=== PATIENT | female | born 1980 | race Caucasian/White ===

== ENCOUNTER 2016-05-11 18:21 | Emergency (ER) | payer OTHER ==
[~2016-05-11] VITALS: Ht 165.1 cm; Wt 111.2 kg
[~2016-05-11 18:21] MED LIST: ACET-1256 PO; ASPI-232 PO; BUME1TAB PO; CARV25TA2 PO; DIGO0.1267 PO; MAGN400T6 PO; MULT-513 PO; POTA10CA28 PO; SPR25 PO; TRAM-10 PO
[2016-05-11 18:28] VITALS: Ht 165.1 cm; Wt 111.2 kg
[2016-05-11] MEDS ORDERED: OMEP20CA9 PO (18:32)
[2016-05-11] MEDS ORDERED: BUPR-79 PO (18:50)
[2016-05-11] MEDS ORDERED: CZR25 PO (18:53)
--- NOTE | 2016-05-11 19:19 | DIAGNOSTIC IMAGING REPORT ---
HEAD CT NONCONTRAST CT DOSE: 795.47 mGy.cm HISTORY: Struck left parietal region, vomiting, dizziness TECHNIQUE: Multiaxial CT images of the head were performed without the use of intravenous contrast. Automated exposure control was utilized for this study. Comparison: Head CT 07/30/2011. Findings: The paranasal sinuses and mastoid air cells are clear. The calvarium and skull base are intact. The ventricles and sulci are within normal limits. There is no mass, hematoma, midline shift, or acute infarct. Impression: No acute intracranial abnormality. Electronically signed by: Scott Caicedo M.D. 05/11/2016 7:17 PM Dictated Date/Time: 05/11/2016 7:13 PM
[2016-05-11] MEDS ORDERED: OPTIRAY 320 IV PRN (19:30)
[2016-05-11 19:54] LABS: BASO % 0.5 %; BASO ABS # 0.05 K/uL (0-0.2); COMPLETE YES; EOS % 1.7 %; HEMATOCRIT 38.3 % (37-47); IG% 0.1 %; LYMPH % 39.1 %; LYMPH ABS # 4.28 K/uL (1.2-3.4); MEAN CELL VOLUME 90.8 fL (80-100); MEAN CORPUSCULAR HEMOGLOBIN 29.6 pg (25-34); MEAN CORPUSCULAR HGB CONC 32.6 g/dl (32-36); MEAN PLATELET VOLUME 10.5 fL (7.4-10.4); MONO % 8.1 %; NEUT % 50.5 %; PLATELET COUNT 328 K/uL (130-400); RED BLOOD COUNT 4.22 M/uL (4.2-5.4); WHITE BLOOD COUNT 10.94 K/uL (4.8-10.8)
--- NOTE | 2016-05-11 20:05 | EMERGENCY ROOM VISIT NOTE ---
ED Visit Note First contact with patient: 18:31 This Patient was discussed with the physician social research assistant, David Rodriguez PA-C. The pertinent historical and physical exam findings were confirmed. I agree with the studies ordered and with the interpretations of these studies. I agree with the disposition and care plan.
[2016-05-11 20:11] LABS: CALCIUM 8.2 mg/dl (8.5-10.1); CREATININE 0.9 mg/dl (0.60-1.20); POTASSIUM 3.6 mmol/L (3.5-5.1)
[2016-05-11 20:16] LABS: ALB/GLOB RATIO 0.9 (0.9-2)
--- NOTE | 2016-05-11 20:21 | DIAGNOSTIC IMAGING REPORT ---
CHEST 2 VIEWS ROUTINE HISTORY: dyspnea COMPARISON: Chest 10/04/2015. FINDINGS: Left-sided single lead pacemaker/defibrillator. The heart remains mildly enlarged. The lungs are clear. No pleural effusions. No pneumothorax. IMPRESSION: No significant change compared to the prior study. No acute process. Stable cardiomegaly. Electronically signed by: Scott Caicedo M.D. 05/11/2016 8:19 PM Dictated Date/Time: 05/11/2016 8:18 PM
--- NOTE | 2016-05-11 20:52 | EMERGENCY ROOM VISIT NOTE ---
History First contact with patient: 18:31 Chief Complaint: HEAD INJURY (MINOR) Stated Complaint: HEAD INJURY,VOMITING,DIZZY,VISION PROBLEMS History of Present Illness The patient is a 35 year old female who presents to the Emergency Room via private vehicle with complaints of "head injury, vomiting, dizzy, vision problems". The patient states that earlier today around 4:14 AM she was at home lying on the couch and she leaned her head backwards and struck it off of the coffee table. She states that since then she has vomited 3 times, has developed a worsening pain on the top of her head and is unable to keep food down secondary to vomiting. She states that she feels very lethargic and has blurred vision in her right eye. She notes that there was no pain initially however the headache has been increasing and is now a 7 or 8/10. She is tried Tylenol without relief. She has tried Maxalt without relief. She states this is close to the worst headache of her life. She does have associated shortness of breath but notes that this has been ongoing for the past few weeks and does have a history of pulmonary embolism as well as cardiomyopathy with an ejection fraction of 20 or 22 as verified by echo. She denies any history of heart attacks. There is associated neck pain on the right but not over the spinous processes. She does take aspirin 3 times a week but no anticoagulants. Review of Systems A complete 10-point Review of Systems was discussed with the patient, with pertinent positives and negatives listed in the History of Present Illness. All remaining Review of Systems questions can be considered negative unless otherwise specified. Past Medical/Surgical History Medical Problems: (1) ADD (attention deficit disorder) (2) Bipolar 1 disorder (3) Cardiac defibrillator in place (4) Chronic back pain (5) Depression (6) History of CVA (cerebrovascular accident) (7) History of DVT (deep vein thrombosis) (8) HTN (hypertension) (9) Migraine (10) Ovarian cyst (11) Sciatic leg pain (12) Severe mitral regurgitation (13) Systolic heart failure (14) Uterine fibroid Surgical Problems: (1) History of cholecystectomy Family History Hypertension Diabetes Social History Smoking Status: Never Smoker Alcohol Use: occasionally Drug Use: none Marital Status: Housing Status: lives with family Occupation Status: disabled Social History: Patient lives at home with family, she is currently unemployed. Current/Historical Medications Scheduled Acetaminophen (Tylenol), 1,000 MG PO PRN UD Aspirin (Aspir-81), 81 MG PO 3XWK Bumetanide (Bumex), 1 MG PO QAM Bupropion (Wellbutrin Sr), 300 MG PO HS Carvedilol (Coreg), 25 MG PO BID Digoxin (Lanoxin), 0.125 MG PO QAM Losartan Potassium (Losartan Potassium), 25 MG PO DAILY Magnesium Oxide (Mag-Ox), 400 MG PO TID Multivitamins/Minerals (Mvi With Minerals), 1 TAB PO DAILY Omeprazole (Prilosec), 20 MG PO QAM Potassium Chloride (Micro-K Ext Rel), 10 MEQ PO DAILY Spironolactone (Spironolactone), 25 MG PO DAILY Scheduled PRN Tramadol (Ultram), 50 MG PO Q6 PRN for Pain Allergies Coded Allergies: Gabapentin (Verified Adverse Reaction, Intermediate, LOOSE STOOL, 05/11/16) Lidocaine (Verified Adverse Reaction, Intermediate, DIZZY, 05/11/16) Physical Exam Vital Signs Date Time Temp Pulse Resp B/P Pulse Ox O2 Delivery O2 Flow Rate FiO2 05/11/16 21:05 36.8 85 20 116/78 98 05/11/16 18:30 20 98 05/11/16 18:28 36.8 85 20 116/78 97 Room Air Physical Exam VITAL SIGNS - Vital signs and nursing notes were reviewed. Patient is afebrile , normotensive, not tachycardic, and is saturating well on room air 97%. GENERAL -35-year-old female appearing her stated age who is in no acute distress. Communicates well with provider and answers questions appropriately. SKIN - Without rashes. HEAD - NC/AT. No palpable skull fractures. No cherry signs or raccoons eyes. EYES - PERRL with EOMI bilaterally. Sclera anicteric. Palpebral conjunctiva pink and moist with no injection noted. EARS - No deformities of external structures noted on gross examination bilaterally. No hemotympanum. External auditory canals without discharge or otorrhea. Tympanic membranes pearly pappas without retraction or bulging. No fluid or purulent material visualized behind the TM. Handle of malleus, umbo, cone of light, pars tensa/flaccid all easily visualized. There was a slight amount of dried blood mixed with wax in the left ear canal. Upon insertion of the speculum in the left ear canal there was referred pain to her headache. NOSE - Midline and without cyanosis. No epistaxis or purulent drainage noted. Septum midline without deviation or septal hematoma noted. MOUTH/OROPHARYNX - Without perioral cyanosis. Buccal mucosa pink and moist and without leukoplakia. Tongue midline with equal elevation of palate bilaterally. No tonsillar hypertrophy, erythema, or exudates noted. Good dentition noted. NECK - Neck with FROM. Supple to palpation. No lymphadenopathy noted. No nuchal rigidity. There was tenderness to the right paraspinous musculature at the superior portion of the trapezius. No C-spine tenderness. LUNGS - Chest wall symmetric without accessory muscle use, intercostals retractions, or central cyanosis. Normal vesicular breath sounds CTA B/L. No wheezes, rales, or rhonchi appreciated. CARDIAC - RRR with S1/S2. No murmur, rubs, or gallops appreciated. EXTREMITIES - No clubbing or peripheral cyanosis. No pretibial edema present. + 5/5 strength noted in UE/LE bilaterally. NEUROLOGIC - Cranial nerves II through XII grossly intact. Sensory intact to light touch throughout. Patellar reflexes +2/4. PSYCH - A&Ox3 and cooperates fully with examiner. Pt is very pleasant and interacts well with examiner. Medical Decision & Procedures ER Provider Diagnostic Interpretation: CHEST 2 VIEWS ROUTINE HISTORY: dyspnea COMPARISON: Chest 10/04/2015. FINDINGS: Left-sided single lead pacemaker/defibrillator. The heart remains mildly enlarged. The lungs are clear. No pleural effusions. No pneumothorax. IMPRESSION: No significant change compared to the prior study. No acute process. Stable cardiomegaly. Electronically signed by: Scott Caicedo M.D. 05/11/2016 8:19 PM Dictated Date/Time: 05/11/2016 8:[address]AST CT DOSE: 795.47 mGy.cm HISTORY: Struck left parietal region, vomiting, dizziness TECHNIQUE: Multiaxial CT images of the head were performed without the use of intravenous contrast. Automated exposure control was utilized for this study. Comparison: Head CT 07/30/2011. Findings: The paranasal sinuses and mastoid air cells are clear. The calvarium and skull base are intact. The ventricles and sulci are within normal limits. There is no mass, hematoma, midline shift, or acute infarct. Impression: No acute intracranial abnormality. Electronically signed by: Scott Caicedo M.D. 05/11/2016 7:17 PM Dictated Date/Time: 05/11/2016 7:13 PM Laboratory Results 05/11/16 19:40 Red Blood Count 4.22, Mean Corpuscular Volume 90.8, Mean Corpuscular Hemoglobin 29.6, Mean Corpuscular Hemoglobin Concent 32.6, Mean Platelet Volume 10.5, Neutrophils (%) (Auto) 50.5, Lymphocytes (%) (Auto) 39.1, Monocytes (%) (Auto) 8.1, Eosinophils (%) (Auto) 1.7, Basophils (%) (Auto) 0.5, Neutrophils # (Auto) 5.52, Lymphocytes # (Auto) 4.28, Monocytes # (Auto) 0.89, Eosinophils # (Auto) 0.19, Basophils # (Auto) 0.05 05/11/16 19:40 Test 05/11/16 19:40 White Blood Count 10.94 K/uL (4.8-10.8) Red Blood Count 4.22 M/uL (4.2-5.4) Hemoglobin 12.5 g/dL (12.0-16.0) Hematocrit 38.3 % (37-47) Mean Corpuscular Volume 90.8 fL (80-100) Mean Corpuscular Hemoglobin 29.6 pg (25-34) Mean Corpuscular Hemoglobin Concent 32.6 g/dl (32-36) Platelet Count 328 K/uL (130-400) Mean Platelet Volume 10.5 fL (7.4-10.4) Neutrophils (%) (Auto) 50.5 % Lymphocytes (%) (Auto) 39.1 % Monocytes (%) (Auto) 8.1 % Eosinophils (%) (Auto) 1.7 % Basophils (%) (Auto) 0.5 % Neutrophils # (Auto) 5.52 K/uL (1.4-6.5) Lymphocytes # (Auto) 4.28 K/uL (1.2-3.4) Monocytes # (Auto) 0.89 K/uL (0.11-0.59) Eosinophils # (Auto) 0.19 K/uL (0-0.5) Basophils # (Auto) 0.05 K/uL (0-0.2) RDW Standard Deviation 45.6 fL (36.4-46.3) RDW Coefficient of Variation 13.7 % (11.5-14.5) Immature Granulocyte % (Auto) 0.1 % Immature Granulocyte # (Auto) 0.01 K/uL (0.00-0.02) D-Dimer 230 ug/L FEU (0-500) Anion Gap 10.0 mmol/L (3-11) Est Creatinine Clear Calc Drug Dose 108.4 ml/min Estimated GFR () 96.0 Estimated GFR (Non- 82.8 BUN/Creatinine Ratio 20.0 (10-20) Calcium Level 8.2 mg/dl (8.5-10.1) Total Bilirubin 0.1 mg/dl (0.2-1) Aspartate Amino Transf (AST/SGOT) 19 U/L (15-37) Alanine Aminotransferase (ALT/SGPT) 24 U/L (12-78) Alkaline Phosphatase 87 U/L (45-117) Troponin I 0.031 ng/ml (0-0.045) Pro-B-Type Natriuretic Peptide 64 pg/ml (0-450) Total Protein 7.0 gm/dl (6.4-8.2) Albumin 3.3 gm/dl (3.4-5.0) Globulin 3.7 gm/dl (2.5-4.0) Albumin/Globulin Ratio 0.9 (0.9-2) Medical Decision Patient was seen and evaluated as above. After obtaining a thorough history and physical examination proper CT of the head was ordered secondary to subjective and objective examination findings. The CT the head did not reveal any acute abnormalities. The patient noted there was slight increase of shortness of breath over the past few weeks and given her past medical history to include pulmonary embolism and cardiomyopathy I did feel that emergent heart and lung workup was warranted. Chest x-ray was negative. I initially ordered a CT scan of the patient's chest but decided against this noting that she had many in the past and she is not present today like pulmonary embolism. Vital signs were within normal limits. D-dimer was then ordered instead. Thorough discussion was had with this with the patient. The above workup was ordered to include CBC, CMP, proBNP, stat EKG, troponin. CBC revealed a slight leukocytosis at 10.94, with elevation of lymphocytes. I do not suspect any systemic or meningitic cause of this. Patient's d-dimer was negative at 230. CMP did not reveal any acute abnormality, calcium was slightly low at 8.2 and this was discussed with the patient. Slight abnormalities were noted in the total bilirubin and the albumin. I do not think that these are significant values at this time. The patient given her symptoms and lack of findings on today's workup is likely experiencing a concussion. She was educated upon management of this. She was instructed to follow-up with the [facility] concussion clinic and provided the number. She was instructed to follow-up with her family doctor. She was educated on worrisome symptoms in which to return. She had questions answered prior to discharge and was discharged home in good condition. The patient's EKG revealed a normal sinus rhythm, rate of 62 bpm with moderate voltage criteria for LVH but she has had a history of cardiomyopathy and this EKG when compared to previous showed improvement. There was no ectopy or acute ischemic changes noted. With the negative troponin, negative BNP and within normal limits EKG I do not suspect any emergent cardiac or primary cause of this today. In the evaluation and treatment of this patient, the following differential diagnoses were considered: Concussion, Contrecoup Injury, Brain Tumor, Depression, Encephalitis, Hypothyroidism, Meningitis, CVA, TIA, Migraine, Cluster Headache, Intracranial Abnormality, myocardial infarction, pulmonary embolism, heart failure, Intracranial Hemorrhage, Subdural Hematoma, Subarachnoid Hemorrhage, Hydrocephalus. Impression Primary Impression: Closed head injury Additional Impressions: Concussion, Hypocalcemia, Leukocytosis Departure Information Dispostion Home / Self-Care Condition GOOD Referrals Michelle Good ARajan P.Layton (PCP) Patient Instructions A Signature Page, My [facility] Additional Instructions You have been treated in the Emergency Department for a Closed Head Injury. CT Scan of your head/brain demonstrated no acute bleeding or other abnormalities. This does not completely rule out the risk for future damage to the brain. Workup has improved a heart attack and pulmonary embolism as being less likely today is cause of your shortness of breath. Please follow-up with the family doctor regarding this. For pain control, you can use the following [id number] medicines (if >12 yo): - Regular strength (325mg/tab) Tylenol (acetaminophen) 2 tabs every 4-6 hours as needed. Do not exceed 12 tablets in a 24 hour period. Avoid taking more than 4 grams (4000 mg) of Tylenol per day. This includes any other sources of acetaminophen you may take on a regular basis. You should relax in a quiet, dark place for the rest of the day. Avoid any possible triggers including: cigarette smoke, caffeine, nicotine, chocolate, wine, beer, loud noises or music, or bright lights. You should schedule a follow-up appointment in 2-3 days with your Primary Care Provider or established Neurologist for further evaluation and treatment of your Headache. Your calcium was low at 8.2. White count was slightly elevated at 10.94. I recommend having these rechecked with your family Dr. Please follow up with the concussion clinic for further evaluation and treatment of your injury: Please call them as soon as possible. [facility] [phone] [place] [address] Return to the Emergency Department if your current symptoms worsen despite treatment course outlined above, or if you develop any of the following symptoms : intractable pain despite aforementioned treatment course, visual disturbances , loss of vision, unilateral weakness or facial drooping, slurring of speech, loss of coordination, or loss of consciousness. Please return to the emergency department with any new/concerning symptoms.
[2016-05-11 21:05] VITALS: BP 116/78; PULSE 85; TEMP 36.8; O2SAT 98
== END 2016-05-11 21:07 | disposition home or self-care (01) ==
LOC: C.EDB 18:23 → C.EDD 21:07
DX: S09.90XA Unspecified injury of head, initial encounter (principal); S06.0X0A Concussion without loss of consciousness, initial encounter; W22.8XXA Striking against or struck by other objects, initial encounter; I10 Essential (primary) hypertension; F90.9 Attention-deficit hyperactivity disorder, unspecified type; F31.9 Bipolar disorder, unspecified; I50.20 Unspecified systolic (congestive) heart failure; N83.209 Unspecified ovarian cyst, unspecified side; G89.29 Other chronic pain; F32.9 Major depressive disorder, single episode, unspecified; I34.0 Nonrheumatic mitral (valve) insufficiency; Z86.73 Personal history of transient ischemic attack (TIA), and cerebral infarction without residual deficits; Z86.718 Personal history of other venous thrombosis and embolism; Z95.810 Presence of automatic (implantable) cardiac defibrillator; Z90.49 Acquired absence of other specified parts of digestive tract; Z79.82 Long term (current) use of aspirin; Z79.899 Other long term (current) drug therapy; Z82.49 Family history of ischemic heart disease and other diseases of the circulatory system; Z83.3 Family history of diabetes mellitus; Z88.8 Allergy status to other drugs, medicaments and biological substances

== ENCOUNTER 2016-06-06 12:46 | Emergency (ER) | payer OTHER ==
[~2016-06-06] VITALS: Ht 165.1 cm; Wt 109.9 kg
[~2016-06-06 12:46] MED LIST changes: +BUPR-79 PO; +CZR25 PO; +OMEP20CA9 PO
[2016-06-06 12:54] VITALS: TEMP 36.7; Ht 165.1 cm; Wt 109.9 kg
--- NOTE | 2016-06-06 13:22 | EMERGENCY ROOM VISIT NOTE ---
History Report prepared by Gabriela: Keegan Bateman Under the Supervision of: Dr. Tiffany Champagne M.D. First contact with patient: 13:13 Chief Complaint: CHEST PAIN Stated Complaint: NEEDLE FEELING L SIDE FACE,CHEST TIGHT,L ARM HEAVY History of Present Illness The patient is a 36 year old female who presents to the Emergency Room with complaints of a persistent left-sided facial [id number] feeling that started 5 days ago. She also notes that her left arm feels heavy. The patient is exhausted, and she is experiencing chest tightness. She denies any chest pain , however. The patient additionally says that everything tastes bad on her tongue. She thinks she may have strep throat. She says she has never had symptoms like this before. The patient states that she has been under a lot of stress recently. Her was just treated here last week for MS, and one of her sons is sick. Source of History: patient Onset: 5 days ago Position: other (left side of face ) Quality: other (pins and needles feeling) Timing: other (persistent) Associated Symptoms: No chest pain Note: Associated symptoms: Left arm heaviness, chest tightness, everything tastes bad on tongue. Review of Systems See HPI for pertinent positives & negatives. A total of 10 systems reviewed and were otherwise negative. Past Medical & Surgical Medical Problems: (1) ADD (attention deficit disorder) (2) Bipolar 1 disorder (3) Cardiac defibrillator in place (4) Chronic back pain (5) Depression (6) History of CVA (cerebrovascular accident) (7) History of DVT (deep vein thrombosis) (8) HTN (hypertension) (9) Migraine (10) Ovarian cyst (11) Sciatic leg pain (12) Severe mitral regurgitation (13) Systolic heart failure (14) Uterine fibroid Surgical Problems: (1) History of cholecystectomy Family History Hypertension Social History Smoking Status: Former Smoker Alcohol Use: occasionally Drug Use: none Marital Status: Housing Status: lives with family Occupation Status: disabled Current/Historical Medications Scheduled Acetaminophen (Tylenol), 1,000 MG PO PRN UD Aspirin (Aspir-81), 81 MG PO 3XWK Bumetanide (Bumex), 1 MG PO QAM Bupropion (Wellbutrin Sr), 300 MG PO HS Carvedilol (Coreg), 25 MG PO BID Digoxin (Lanoxin), 0.125 MG PO QAM Losartan Potassium (Losartan Potassium), 25 MG PO DAILY Magnesium Oxide (Mag-Ox), 400 MG PO TID Multivitamins/Minerals (Mvi With Minerals), 1 TAB PO DAILY Omeprazole (Prilosec), 20 MG PO QAM Potassium Chloride (Micro-K Ext Rel), 10 MEQ PO DAILY Spironolactone (Spironolactone), 25 MG PO DAILY Scheduled PRN Tramadol (Ultram), 50 MG PO Q6 PRN for Pain Allergies Coded Allergies: Gabapentin (Verified Adverse Reaction, Intermediate, LOOSE STOOL, 06/06/16) Lidocaine (Verified Adverse Reaction, Intermediate, DIZZY, 06/06/16) Physical Exam Vital Signs Date Time Temp Pulse Resp B/P Pulse Ox O2 Delivery O2 Flow Rate FiO2 06/06/16 12:54 36.7 76 18 122/80 96 Room Air Physical Exam CONSTITUTIONAL: Anxious appearing. HEENT: No icterus, moist mucous membranes. Poor dentition. NECK: No meningismus, trachea is midline. CARDIOVASCULAR: Regular rate, normal perfusion RESPIRATORY: Unlabored breathing. Clear to auscultation. GASTROINTESTINAL: Non-tender GENITOURINARY: No flank tenderness MUSCULOSKELETAL: Full range of motion NEUROLOGIC: No acute gross focal deficits. PSYCHIATRIC: Normal affect SKIN: Normal for ethnicity. Medical Decision & Procedures ER Provider Diagnostic Interpretation: CT results as stated below per my review and radiologist interpretation. CT HEAD WITHOUT CONTRAST (CT) CLINICAL HISTORY: paresthesias COMPARISON STUDY: 05/11/2016 TECHNIQUE: Axial CT of the brain is performed from the vertex to the skull base. IV contrast was not administered for this examination. CT DOSE: 638.56 mGycm FINDINGS: No intra or extra-axial mass lesions are visualized. There is no CT evidence of acute cortical infarction. There is no evidence of midline shift. There is no acute hemorrhage. No calvarial fractures are visualized. There is no evidence of pathologic ventricular dilatation. There are polypoid mucosal densities within the left maxilla sinus. No air-fluid levels are visualized. IMPRESSION: No acute intracranial findings Electronically signed by: Esau Ramos M.D. 06/06/2016 1:54 PM Dictated Date/Time: 06/06/2016 1:53 PM Laboratory Results 06/06/16 13:35 Red Blood Count 4.37, Mean Corpuscular Volume 90.8, Mean Corpuscular Hemoglobin 30.0, Mean Corpuscular Hemoglobin Concent 33.0, Mean Platelet Volume 10.5, Neutrophils (%) (Auto) 61.2, Lymphocytes (%) (Auto) 29.8, Monocytes (%) (Auto) 7.0, Eosinophils (%) (Auto) 1.5, Basophils (%) (Auto) 0.3, Neutrophils # (Auto) 6.70, Lymphocytes # (Auto) 3.26, Monocytes # (Auto) 0.76, Eosinophils # (Auto) 0.16, Basophils # (Auto) 0.03 Test 06/06/16 13:35 White Blood Count 10.93 K/uL (4.8-10.8) Red Blood Count 4.37 M/uL (4.2-5.4) Hemoglobin 13.1 g/dL (12.0-16.0) Hematocrit 39.7 % (37-47) Mean Corpuscular Volume 90.8 fL (80-100) Mean Corpuscular Hemoglobin 30.0 pg (25-34) Mean Corpuscular Hemoglobin Concent 33.0 g/dl (32-36) Platelet Count 326 K/uL (130-400) Mean Platelet Volume 10.5 fL (7.4-10.4) Neutrophils (%) (Auto) 61.2 % Lymphocytes (%) (Auto) 29.8 % Monocytes (%) (Auto) 7.0 % Eosinophils (%) (Auto) 1.5 % Basophils (%) (Auto) 0.3 % Neutrophils # (Auto) 6.70 K/uL (1.4-6.5) Lymphocytes # (Auto) 3.26 K/uL (1.2-3.4) Monocytes # (Auto) 0.76 K/uL (0.11-0.59) Eosinophils # (Auto) 0.16 K/uL (0-0.5) Basophils # (Auto) 0.03 K/uL (0-0.2) RDW Standard Deviation 44.9 fL (36.4-46.3) RDW Coefficient of Variation 13.4 % (11.5-14.5) Immature Granulocyte % (Auto) 0.2 % Immature Granulocyte # (Auto) 0.02 K/uL (0.00-0.02) Troponin I 0.020 ng/ml (0-0.045) Labs reviewed by ED physician. ECG Indication: chest pain Rate (beats per minute): 64 Rhythm: normal sinus Findings: no ectopy, other (nonspecific-ST findings) ED Course 1313: Past medical records reviewed. The patient was evaluated in room B5. A complete history and physical examination was performed. 1438: I reevaluated the patient and she is resting comfortably. The patient verbally expressed understanding and agreement of the treatment plan. The patient will be discharged. Medical Decision Differential diagnoses include: anxiety, heart disease, brain disease. 36-year-old presented to the emergency department for multiple complaints including mild diffuse perioral paresthesias, sore throat as well as vague chest discomfort. There is no clear ameliorating or exacerbating factors. She is neurologically intact with no focal deficits. CT head, EKG and troponin were all within normal limits. HEENT exam was unremarkable. She had she is under considerable stress of late and symptoms may be attributed to anxiety. She appeared comfortable time of discharge at 2:40 PM without any further concerns. Impression Primary Impression: Anxiety Scribe Attestation The scribe's documentation has been prepared under my direction and personally reviewed by me in its entirety. I confirm that the note above accurately reflects all work, treatment, procedures, and medical decision making performed by me. Departure Information Dispostion Home / Self-Care Referrals Michelle Good PMohsen (PCP) Forms HOME CARE DOCUMENTATION FORM, IMPORTANT VISIT INFORMATION Patient Instructions Anxiety Body Response, ED Paraesthesias, My [facility]
[2016-06-06 13:48] LABS: BASO % 0.3 %; BASO ABS # 0.03 K/uL (0-0.2); COMPLETE YES; EOS % 1.5 %; HEMATOCRIT 39.7 % (37-47); IG% 0.2 %; LYMPH % 29.8 %; LYMPH ABS # 3.26 K/uL (1.2-3.4); MEAN CELL VOLUME 90.8 fL (80-100); MEAN PLATELET VOLUME 10.5 fL (7.4-10.4); NEUT % 61.2 %; PLATELET COUNT 326 K/uL (130-400); RED BLOOD COUNT 4.37 M/uL (4.2-5.4); WHITE BLOOD COUNT 10.93 K/uL (4.8-10.8)
--- NOTE | 2016-06-06 13:56 | DIAGNOSTIC IMAGING REPORT ---
CT HEAD WITHOUT CONTRAST (CT) CLINICAL HISTORY: paresthesias COMPARISON STUDY: 05/11/2016 TECHNIQUE: Axial CT of the brain is performed from the vertex to the skull base. IV contrast was not administered for this examination. CT DOSE: 638.56 mGycm FINDINGS: No intra or extra-axial mass lesions are visualized. There is no CT evidence of acute cortical infarction. There is no evidence of midline shift. There is no acute hemorrhage. No calvarial fractures are visualized. There is no evidence of pathologic ventricular dilatation. There are polypoid mucosal densities within the left maxilla sinus. No air-fluid levels are visualized. IMPRESSION: No acute intracranial findings Electronically signed by: Esau Ramos M.D. 06/06/2016 1:54 PM Dictated Date/Time: 06/06/2016 1:53 PM
[2016-06-06 14:50] VITALS: BP 128/73; PULSE 75; O2SAT 98
== END 2016-06-06 14:50 | disposition home or self-care (01) ==
LOC: C.EDB 12:48
DX: F41.9 Anxiety disorder, unspecified (principal); F90.9 Attention-deficit hyperactivity disorder, unspecified type; F31.9 Bipolar disorder, unspecified; Z95.810 Presence of automatic (implantable) cardiac defibrillator; M54.9 Dorsalgia, unspecified; G89.29 Other chronic pain; Z86.73 Personal history of transient ischemic attack (TIA), and cerebral infarction without residual deficits; Z86.718 Personal history of other venous thrombosis and embolism; I10 Essential (primary) hypertension; I34.0 Nonrheumatic mitral (valve) insufficiency; Z90.49 Acquired absence of other specified parts of digestive tract; Z82.49 Family history of ischemic heart disease and other diseases of the circulatory system; Z87.891 Personal history of nicotine dependence; Z79.82 Long term (current) use of aspirin; Z79.899 Other long term (current) drug therapy

== ENCOUNTER 2016-07-22 16:05 | Emergency (ER) | payer OTHER ==
[~2016-07-22] VITALS: Ht 165.1 cm; Wt 111.9 kg
[2016-07-22 16:15] VITALS: TEMP 36.6; Ht 165.1 cm; Wt 111.9 kg
--- NOTE | 2016-07-22 18:05 | EMERGENCY ROOM VISIT NOTE ---
History First contact with patient: 17:41 Chief Complaint: CARDIAC ASSESSMENT Stated Complaint: LEFT ARM HEAVY, SOB, TIGHT CHEST, HEADACHE Nursing Triage Summary: Patient arrived to ER c/o left side of face "feeling weird", left side of head "pounding", left side feels "weird or sore or something", left arm is "burning. " Pt was seen at PCP today and they did an EKG and they wanted her to come to ER. Hx Cardiomyopathy, PVC's. Pt states last night she was sitting, relaxed, doing nothing and had palpitations and PVC's. Pt states Satruday she had a fever for one day, thought she was going to get bronchitis because son had it. Pt denies cough. Patient states she is exhausted and she vomited once yesterday. Pt c/o chest tightness and being a little short of breath. History of Present Illness The patient is a 36 year old female who presents to the Emergency Room with complaints of flulike symptoms. The patient states that she was feeling very fatigued on Friday and Friday. She states that both of her children have been sick with sore throat, runny nose and cough. The patient states that yesterday she felt very fatigued and felt heaviness on the left side of her body. She states that she contacted Dr. Bridges last night because she developed palpitations and PVCs. He recommended that she come to the emergency department. The patient decided instead to follow-up with her family doctor this morning. She states that she was started on Levaquin for potential upper respiratory tract infection. The patient states that she has also had a left- sided headache and states that the left side of her face feels "weird." She reports left arm heaviness and burning. She reports chest tightness. She reports a fever with temperature as high as 103.4F. She rates her discomfort a 4/10. She denies any neck pain or neck stiffness. She states her headache is markedly improved. She denies any respiratory distress. The patient has a history of peripartum cardiomyopathy 5 years ago. She had an echocardiogram on Friday which revealed an ejection fraction of 25% which is actually improved for her. Review of Systems A 10 system review of systems was completed with positives and pertinent negatives listed in the HPI. Past Medical/Surgical History Medical Problems: (1) ADD (attention deficit disorder) (2) Bipolar 1 disorder (3) Cardiac defibrillator in place (4) Chronic back pain (5) Depression (6) History of CVA (cerebrovascular accident) (7) History of DVT (deep vein thrombosis) (8) HTN (hypertension) (9) Migraine (10) Ovarian cyst (11) Sciatic leg pain (12) Severe mitral regurgitation (13) Systolic heart failure (14) Uterine fibroid Surgical Problems: (1) History of cholecystectomy Family History Hypertension Social History Smoking Status: Former Smoker Alcohol Use: occasionally Drug Use: none Marital Status: Housing Status: lives with family Occupation Status: disabled Current/Historical Medications Scheduled Acetaminophen (Tylenol), 1,000 MG PO PRN UD Aspirin (Aspir-81), 81 MG PO 3XWK Bumetanide (Bumex), 1 MG PO QAM Bupropion (Wellbutrin Sr), 300 MG PO HS Carvedilol (Coreg), 25 MG PO BID Digoxin (Lanoxin), 0.125 MG PO QAM Losartan Potassium (Losartan Potassium), 25 MG PO DAILY Magnesium Oxide (Mag-Ox), 400 MG PO TID Multivitamins/Minerals (Mvi With Minerals), 1 TAB PO DAILY Omeprazole (Prilosec), 20 MG PO QAM Potassium Chloride (Micro-K Ext Rel), 10 MEQ PO DAILY Spironolactone (Spironolactone), 25 MG PO DAILY Scheduled PRN Tramadol (Ultram), 50 MG PO Q6 PRN for Pain Allergies Coded Allergies: Gabapentin (Verified Adverse Reaction, Intermediate, LOOSE STOOL, 06/06/16) Lidocaine (Verified Adverse Reaction, Intermediate, DIZZY, 06/06/16) Physical Exam Vital Signs Date Time Temp Pulse Resp B/P Pulse Ox O2 Delivery O2 Flow Rate FiO2 07/22/16 20:02 71 16 120/74 98 07/22/16 18:08 66 20 137/72 94 Room Air 07/22/16 16:15 36.6 73 18 172/73 97 Room Air 07/22/16 16:15 97 Room Air Physical Exam VITALS: Vitals are noted on the nurse's note and reviewed by myself. Vital signs stable. The patient is afebrile. She is not tachycardic, tachypneic or hypoxic. GENERAL: This is a 36-year-old female, in no acute distress, nondiaphoretic, well-developed well-nourished. SKIN: The skin was without rashes, erythema, edema, or bruising. There is no tenting of the skin. Capillary reflex less than 2 seconds. HEAD: Normocephalic atraumatic. EARS: External auditory canals clear, tympanic membranes pearly pappas without erythema or effusion bilaterally. EYES: Pupils equal round and reactive to light and accommodation. Conjunctivae without injection, sclerae without icterus. Extraocular movements intact. NOSE: Patent, turbinates without inflammation or discharge. No sinus tenderness. MOUTH: Mucous membranes moist. Tonsils are not enlarged. Pharynx without erythema or exudate. Uvula midline. Airway patent. Tongue does not deviate. NECK: Supple without nuchal rigidity. No lymphadenopathy. No thyromegaly. Cervical spine is nontender. No JVD. HEART: Regular rate and rhythm with a very soft systolic murmur which the patient states is known. LUNGS: Clear to auscultation bilaterally without wheezes, rales or rhonchi. No retractions or accessory muscle use. ABDOMEN: Positive bowel sounds x 4. Soft, nontender, without masses or organomegaly. MUSCULOSKELETAL: No muscle atrophy, erythema, or edema noted. Full range of motion in all extremities. Normal gait. Strength 5/5 throughout. NEURO: Patient was alert and oriented to person place and time. No focal neurological deficits. Medical Decision & Procedures ER Provider Diagnostic Interpretation: CHEST ONE VIEW PORTABLE CLINICAL HISTORY: Atypical chest pain, shortness of breath. Headache. COMPARISON STUDY: 05/11/2016 FINDINGS: The heart is mildly enlarged. There is a single chamber left subclavian pacer/defibrillator present. There is no failure. There is no focal pulmonary consolidation. There are no pleural effusions.[ IMPRESSION: Stable cardiomegaly. No acute findings. CT HEAD WITHOUT CONTRAST (CT) CLINICAL HISTORY: left sided headache COMPARISON STUDY: 06-21 TECHNIQUE: Axial CT of the brain is performed from the vertex to the skull base. IV contrast was not administered for this examination. CT DOSE: 537.48 mGy.cm FINDINGS: No intra or extra-axial mass lesions are visualized. There is no CT evidence of acute cortical infarction. There is no evidence of midline shift. There is no acute hemorrhage. No calvarial fractures are visualized. There is no evidence of pathologic ventricular dilatation. There is no evidence of acute sinusitis IMPRESSION: Normal noncontrast head CT. Laboratory Results 07/22/16 18:13 Red Blood Count 4.26, Mean Corpuscular Volume 88.5, Mean Corpuscular Hemoglobin 29.6, Mean Corpuscular Hemoglobin Concent 33.4, Mean Platelet Volume 10.1, Neutrophils (%) (Auto) 54.9, Lymphocytes (%) (Auto) 33.2, Monocytes (%) (Auto) 9.5, Eosinophils (%) (Auto) 1.8, Basophils (%) (Auto) 0.3, Neutrophils # (Auto) 6.06, Lymphocytes # (Auto) 3.66, Monocytes # (Auto) 1.05, Eosinophils # (Auto) 0.20, Basophils # (Auto) 0.03 07/22/16 18:13 Test 07/22/16 18:13 07/22/16 18:19 White Blood Count 11.03 K/uL (4.8-10.8) Red Blood Count 4.26 M/uL (4.2-5.4) Hemoglobin 12.6 g/dL (12.0-16.0) Hematocrit 37.7 % (37-47) Mean Corpuscular Volume 88.5 fL (80-100) Mean Corpuscular Hemoglobin 29.6 pg (25-34) Mean Corpuscular Hemoglobin Concent 33.4 g/dl (32-36) Platelet Count 324 K/uL (130-400) Mean Platelet Volume 10.1 fL (7.4-10.4) Neutrophils (%) (Auto) 54.9 % Lymphocytes (%) (Auto) 33.2 % Monocytes (%) (Auto) 9.5 % Eosinophils (%) (Auto) 1.8 % Basophils (%) (Auto) 0.3 % Neutrophils # (Auto) 6.06 K/uL (1.4-6.5) Lymphocytes # (Auto) 3.66 K/uL (1.2-3.4) Monocytes # (Auto) 1.05 K/uL (0.11-0.59) Eosinophils # (Auto) 0.20 K/uL (0-0.5) Basophils # (Auto) 0.03 K/uL (0-0.2) RDW Standard Deviation 44.1 fL (36.4-46.3) RDW Coefficient of Variation 13.7 % (11.5-14.5) Immature Granulocyte % (Auto) 0.3 % Immature Granulocyte # (Auto) 0.03 K/uL (0.00-0.02) D-Dimer 400 ug/L FEU (0-500) Anion Gap 9.0 mmol/L (3-11) Est Creatinine Clear Calc Drug Dose 108.9 ml/min Estimated GFR () 96.6 Estimated GFR (Non- 83.4 BUN/Creatinine Ratio 17.3 (10-20) Calcium Level 8.6 mg/dl (8.5-10.1) Total Bilirubin 0.3 mg/dl (0.2-1) Aspartate Amino Transf (AST/SGOT) 21 U/L (15-37) Alanine Aminotransferase (ALT/SGPT) 30 U/L (12-78) Alkaline Phosphatase 96 U/L (45-117) Total Creatine Kinase 215 U/L (26-192) Creatine Kinase MB 3.1 ng/ml (0.5-3.6) Creatine Kinase MB Ratio 1.4 (0-3.0) Troponin I 0.024 ng/ml (0-0.045) Total Protein 7.7 gm/dl (6.4-8.2) Albumin 3.4 gm/dl (3.4-5.0) Globulin 4.3 gm/dl (2.5-4.0) Albumin/Globulin Ratio 0.8 (0.9-2) Thyroid Stimulating Hormone (TSH) 1.830 uIu/ml (0.300-4.500) Influenza Type A Antigen Neg for Influ A (NEG) Influenza Type B Antigen Neg for Influ B (NEG) Procedure The patient was monitored on a nurse monitoring. They maintained a normal sinus rhythm without ectopy. ECG Indication: chest pain Rate (beats per minute): 65 Rhythm: normal sinus Findings: no acute ischemic change Change: no significant change ED Course The patient was seen and examined. Previous visits were reviewed. The patient does not have a fever. She has a very mild leukocytosis of 11.03. She does not have any significant electrolyte abnormalities. Case minimally elevated at 215. Troponin is 0.024 which is quite similar to previous. TSH is within normal limits. D-dimer is not elevated. Influenza was negative. Chest x-ray reveals stable cardiomegaly Head CT does not reveal any acute abnormality The patient presents to the emergency department with flulike symptoms. She has also felt palpitations. She has also had chest tightness. The above workup does not reveal any obvious abnormality at this time. She should follow- up with her family doctor and cardiology. She was already started on Levaquin and may continue this. She should return to the ER with any worsening symptoms. The patient was also seen and examined by who agrees with the assessment and treatment plan. Medical Decision DIFFERENTIAL DIAGNOSIS: Aortic dissection, myocarditis, pericarditis, cervical disc disease, costochondritis, herpes zoster, rib fracture, pleuritis, pneumonia , pulmonary embolus, tension pneumothorax, anxiety disorder, somatoform disorder , choledocholithiasis, status, esophagitis, esophageal spasm, esophageal reflux , esophageal rupture, pancreatitis, peptic ulcer disease, cardiac ischemia, ST elevation [place], acute coronary syndrome, arrhythmia, coronary artery vasospasm. vavular heart disease, coronary artery disease, among others. Impression Primary Impression: Upper respiratory infection Departure Information Dispostion Home / Self-Care Condition GOOD Referrals Michelle Good A. P.ARajan (PCP) Patient Instructions [facility] Additional Instructions Continue the Levaquin as prescribed Rest Return to emergency Department with any worsening symptoms Otherwise, follow up with your family doctor by the end of the week if no improvement
--- NOTE | 2016-07-22 18:07 | DIAGNOSTIC IMAGING REPORT ---
CHEST ONE VIEW PORTABLE CLINICAL HISTORY: Atypical chest pain, shortness of breath. Headache. COMPARISON STUDY: 05/11/2016 FINDINGS: The heart is mildly enlarged. There is a single chamber left subclavian pacer/defibrillator present. There is no failure. There is no focal pulmonary consolidation. There are no pleural effusions.[ IMPRESSION: Stable cardiomegaly. No acute findings. Electronically signed by: Esau Ramos M.D. 07/22/2016 6:05 PM Dictated Date/Time: 07/22/2016 6:05 PM
[2016-07-22 18:32] LABS: BASO % 0.3 %; BASO ABS # 0.03 K/uL (0-0.2); COMPLETE YES; EOS % 1.8 %; HEMATOCRIT 37.7 % (37-47); IG% 0.3 %; LYMPH % 33.2 %; LYMPH ABS # 3.66 K/uL (1.2-3.4); MEAN CELL VOLUME 88.5 fL (80-100); MEAN CORPUSCULAR HEMOGLOBIN 29.6 pg (25-34); MEAN CORPUSCULAR HGB CONC 33.4 g/dl (32-36); MEAN PLATELET VOLUME 10.1 fL (7.4-10.4); MONO % 9.5 %; NEUT % 54.9 %; PLATELET COUNT 324 K/uL (130-400); RED BLOOD COUNT 4.26 M/uL (4.2-5.4); WHITE BLOOD COUNT 11.03 K/uL (4.8-10.8)
--- NOTE | 2016-07-22 18:44 | DIAGNOSTIC IMAGING REPORT ---
CT HEAD WITHOUT CONTRAST (CT) CLINICAL HISTORY: left sided headache COMPARISON STUDY: 06-21 TECHNIQUE: Axial CT of the brain is performed from the vertex to the skull base. IV contrast was not administered for this examination. CT DOSE: 537.48 mGy.cm FINDINGS: No intra or extra-axial mass lesions are visualized. There is no CT evidence of acute cortical infarction. There is no evidence of midline shift. There is no acute hemorrhage. No calvarial fractures are visualized. There is no evidence of pathologic ventricular dilatation. There is no evidence of acute sinusitis IMPRESSION: Normal noncontrast head CT. Electronically signed by: Esau Ramos M.D. 07/22/2016 6:42 PM Dictated Date/Time: 07/22/2016 6:41 PM
[2016-07-22 18:51] LABS: BUN/CREATININE RATIO 17.3 (10-20); CALCIUM 8.6 mg/dl (8.5-10.1); CREATININE 0.89 mg/dl (0.60-1.20); POTASSIUM 3.9 mmol/L (3.5-5.1)
[2016-07-22 19:02] LABS: ALB/GLOB RATIO 0.8 (0.9-2); CKMB/CK RATIO 1.4 (0-3.0); THYROID STIMULATING HORMONE 1.83 uIu/ml (0.300-4.500)
[2016-07-22 20:02] VITALS: BP 120/74; PULSE 71; O2SAT 98
--- NOTE | 2016-07-22 21:40 | EMERGENCY ROOM VISIT NOTE ---
ED Visit Note First contact with patient: 17:41 I have personally evaluated and examined this patient. I agree with assessment and plan of Elizabeth Kramer PA-C. H/o Cardiomyopathy with URI like symptoms that her children have.
== END 2016-07-22 20:03 | disposition home or self-care (01) ==
LOC: C.EDB 16:06 → C.EDC 20:03
DX: J06.9 Acute upper respiratory infection, unspecified (principal); I10 Essential (primary) hypertension; F90.9 Attention-deficit hyperactivity disorder, unspecified type; F31.9 Bipolar disorder, unspecified; N83.209 Unspecified ovarian cyst, unspecified side; I05.9 Rheumatic mitral valve disease, unspecified; I50.22 Chronic systolic (congestive) heart failure; Z86.73 Personal history of transient ischemic attack (TIA), and cerebral infarction without residual deficits; Z95.810 Presence of automatic (implantable) cardiac defibrillator; Z85.42 Personal history of malignant neoplasm of other parts of uterus; Z90.49 Acquired absence of other specified parts of digestive tract; Z87.891 Personal history of nicotine dependence; Z79.82 Long term (current) use of aspirin; Z79.899 Other long term (current) drug therapy; Z88.8 Allergy status to other drugs, medicaments and biological substances; Z82.49 Family history of ischemic heart disease and other diseases of the circulatory system

== ENCOUNTER → 2017-01-17 | Outpatient (CLI) | payer OTHER ==
--- NOTE | 2017-01-17 08:54 | DIAGNOSTIC IMAGING REPORT ---
RIGHT KNEE 4 OR MORE VIEWS CLINICAL HISTORY: ACUTE PAIN OF RIGHT KNEE M25.561 Right pain COMPARISON: None. DISCUSSION: Findings consistent with mild chondromalacia patella. Medial lateral joint compartments are well preserved. No significant joint effusion. There is no evidence for soft tissue swelling. IMPRESSION: Mild chondromalacia patella. Otherwise negative study. The above report was generated using voice recognition software. It may contain grammatical, syntax or spelling errors. Electronically signed by: Cristobal Fierro M.D. 01/17/2017 8:52 AM Dictated Date/Time: 01/17/2017 8:52 AM
== END | disposition home or self-care (01) ==
LOC: C.RAD 08:18
PROVIDERS: ATTEND Physician Assistant
DX: M25.561 Pain in right knee (principal)

== ENCOUNTER → 2017-06-16 | Outpatient (CLI) | payer OTHER ==
--- NOTE | 2017-06-16 08:50 | DIAGNOSTIC IMAGING REPORT ---
C-SPINE ROUTINE 4 OR 5 VIEWS CLINICAL HISTORY: NECK TIGHTNESS, SPASM OF MUSCLE COMPARISON STUDY: No previous studies for comparison. FINDINGS: Alignment of the cervical spine is anatomic. A left subclavian pacer/AICD is incidentally noted. Vertebral body heights are maintained. There is no fracture or suspicious lesion within the cervical spine. There is minimal multilevel disc space narrowing with osteophytosis. Note is made of mild to moderate multilevel facet arthrosis. IMPRESSION: 1. No cervical spine fracture. 2. Mild multilevel degenerative disc disease and mild to moderate multilevel facet arthrosis of the cervical spine. Electronically signed by: Ken Mott M.D. 06/16/2017 8:49 AM Dictated Date/Time: 06/16/2017 8:47 AM
== END | disposition home or self-care (01) ==
LOC: C.RAD 07:57
PROVIDERS: ATTEND Physician Assistant
DX: R29.898 Other symptoms and signs involving the musculoskeletal system (principal); M62.838 Other muscle spasm